=== PATIENT | male | born 1985 | race African-American/Black ===

== ENCOUNTER 2025-07-06 13:53 | Emergency (ER) | payer BC ==
[2025-07-06 15:26] LABS: MEAN PLATELET VOLUME 8.9 fL (6.7-11.0); PLATELET COUNT,PLT 181 x10(3)uL (117-477); RED BLOOD CELL COUNT 4.46 x10(6)uL (3.90-5.90); RED CELL DISTRIBUTION WIDTH 14.4 % (12.4-15.0); WHITE BLOOD CELL COUNT,WBC 4.0 x10-3/uL (3.2-10.1)
[2025-07-06 15:32] LABS: BLOOD UREA NITROGEN,BUN 14 mg/dL (7-18); CARBON DIOXIDE,CO2 25 mmol/L (21-32); CHLORIDE,CL 105 mmol/L (100-110); CREATININE 1.0 mg/dL (0.70-1.30); EST CRCL DRUG DOSING (CG) 103.42 mL/min; ESTIMATED GFR 99 mL/min (>60); GLUCOSE RANDOM 96 mg/dL (80-116); POTASSIUM,K 3.8 mmol/L (3.5-5.3); SODIUM,NA 141 mmol/L (135-145)
[2025-07-06 15:38] LABS: A/G RATIO 0.7; ALANINE AMINOTRANSFERASE,ALT 73 U/L (12-36); ASPARTATE AMNIOTRANSFERASE,AST 48 IU/L (5-25); BILIRUBIN TOTAL 0.2 mg/dL (0.1-1.3); PROTEIN TOTAL,TP 7.9 g/dL (6.0-8.0)
[2025-07-06 16:09] LABS: EOSINOPHILS PERCENT MAN 1 % (0-5); LYMPHOCYTES PERCENT MAN 19 % (13-37); MONOCYTES PERCENT MAN 16 % (4-12); SEG NEUTROPHILS PERCENT MAN 64 % (46-82)
== END 2025-07-06 16:20 | disposition home or self-care (01) ==
LOC: FB.ED 13:53
DX: K85.90 Acute pancreatitis without necrosis or infection, unspecified (principal); Z79.899 Other long term (current) drug therapy
CPT/HCPCS: 36415; 80053; 82150; 83690; 85025; 99284

== ENCOUNTER 2025-08-21 07:44 | Emergency (ER) | payer BC ==
[2025-08-21] MEDS ORDERED: Sodium Chloride 0.9% 10 ML Syringe FLUSH PRN (08:14)
[2025-08-21] MEDS: Ketorolac 30 MG/ML SDV IVPUSH ONE (08:39)
[2025-08-21] MEDS ORDERED: Naloxone 0.4 MG/ML SDV IVPUSH PRN (08:46)
[2025-08-21 08:51] LABS: BASOPHILS ABSOLUTE AUTO 0.0 x10-3/uL (0.0-0.3); BASOPHILS PERCENT AUTO 0.4 % (0.3-3.8); EOSINOPHILS ABSOLUTE AUTO 0.1 x10-3/uL (0.0-0.6); EOSINOPHILS PERCENT AUTO 1.9 % (0.1-6.8); LYMPHOCYTES ABSOLUTE AUTO 1.7 x10-3/uL (0.5-4.5); LYMPHOCYTES PERCENT AUTO 36.2 % (15.8-45.3); MEAN PLATELET VOLUME 9.1 fL (6.7-11.0); MONOCYTES ABSOLUTE AUTO 0.5 x10-3/uL (0.0-1.2); MONOCYTES PERCENT AUTO 9.7 % (5.5-15.2); NEUTROPHILS ABSOLUTE AUTO 2.4 x10-3/uL (1.7-6.9); NEUTROPHILS PERCENT AUTO 51.8 % (40.3-71.8); PLATELET COUNT,PLT 201 x10(3)uL (117-477); RED BLOOD CELL COUNT 4.36 x10(6)uL (3.90-5.90); RED CELL DISTRIBUTION WIDTH 13.3 % (12.4-15.0); WHITE BLOOD CELL COUNT,WBC 4.7 x10-3/uL (3.2-10.1)
[2025-08-21] MEDS: fentaNYL 100 MCG/2 ML SDV IVPUSH ONE (08:51)
[2025-08-21 08:55] LABS: GLUCOSE,URINE NORMAL (NORMAL); OCCULT BLOOD,URINE NEGATIVE (NEGATIVE)
[2025-08-21 08:55] LABS: BLOOD UREA NITROGEN,BUN 18 mg/dL (7-18); CARBON DIOXIDE,CO2 24 mmol/L (21-32); CHLORIDE,CL 101 mmol/L (100-110); CREATININE 0.9 mg/dL (0.70-1.30); EST CRCL DRUG DOSING (CG) 114.91 mL/min; ESTIMATED GFR 112 mL/min (>60); GLUCOSE RANDOM 117 mg/dL (80-116); POTASSIUM,K 4.1 mmol/L (3.5-5.3); SODIUM,NA 134 mmol/L (135-145)
[2025-08-21 08:56] LABS: APPEARANCE,URINE CLEAR (CLEAR)
[2025-08-21 09:01] LABS: A/G RATIO 1.0; ALANINE AMINOTRANSFERASE,ALT 63 U/L (12-36); ASPARTATE AMNIOTRANSFERASE,AST 43 IU/L (5-25); BILIRUBIN TOTAL 0.5 mg/dL (0.1-1.3); PROTEIN TOTAL,TP 8.4 g/dL (6.0-8.0)
[2025-08-21 09:14] LABS: AMPHETAMINES SCREEN, URINE NEGATIVE (NEGATIVE); BUPRENORPHINE SCREEN,URINE NEGATIVE (NEGATIVE); METHADONE SCREEN, URINE NEGATIVE (NEGATIVE); METHAMPHETAMINE SCREEN, URINE NEGATIVE (NEGATIVE); OXYCODONE SCREEN,URINE NEGATIVE (NEGATIVE)
[2025-08-21 09:15] LABS: FINE GRANULAR CASTS,URINE RARE (NS); SQUAMOUS EPITHELIAL CELLS,UR RARE (NS,R,O)
[2025-08-21 09:17] LABS: ETHANOL BLOOD MEDICAL < 0.03 % (<0.03)
[2025-08-21] MEDS: Iopamidol 755 Mg/ML 100 ML Bottle IV SCH (10:05)
[2025-08-21] MEDS: HYDROmorphone 2 MG/ML SDV IVPUSH ONE ×2 (10:32→12:11)
== END 2025-08-21 12:30 | disposition home or self-care (01) ==
LOC: FB.ED 07:44
DX: K29.00 Acute gastritis without bleeding (principal); K86.3 Pseudocyst of pancreas; I10 Essential (primary) hypertension; E66.9 Obesity, unspecified; Z79.899 Other long term (current) drug therapy; Z86.16 Personal history of COVID-19; Z68.45 Body mass index [BMI] 70 or greater, adult
CPT/HCPCS: 36415; 74177; 74177-26; 80053; 80307; 81001; 83690; 83735; 85025; 86140; 96361; 96374; 96375; 96376; 99284-25; J1171; J1885; J2765; J3010; J7030; Q9967